=== PATIENT | female | born 1985 | race Caucasian/White ===

== ENCOUNTER 2017-08-05 18:17 | Emergency (ER) | payer OTHER ==
[2017-08-05 18:57] VITALS: BP 125/66; PULSE 72; TEMP 98.2; BMI 32.5
--- NOTE | 2017-08-05 19:37 | PDOC ---
History of Present Illness - General History Source: Patient Exam Limitations: No Limitations <Kaye Barrera - Last Filed: 08/05/17 19:46> <Bridgette Lopez - Last Filed: 08/06/17 00:39> - General Chief Complaint: Chest Pain Stated Complaint: CHEST PAIN Time Seen by Provider: 08/05/17 18:23 - History of Present Illness Initial Comments: 08/05/17 19:46 The patient is a 32 year old male who is 12 days post with subsequent DVT and PE, currently on Xarelto, who presents to the ED complaining of chest pain today. The patient states she was at home in the kitchen when she began to develop subxiphoid pain, radiating up the sternum, with associated SOB. She states she has experienced similar episodes in the past that were attributed to anxiety and GERD. Today, she states she reportedly became worried due to being on anticoagulents and activated EMS. Symptoms are improved on arrival. No fever or chills. No nausea, vomiting, or diarrhea. No headache or blurred vision. Patient goes to [address] [place] [address]. (Kaye Barrera) Past History <Kaye Barrera - Last Filed: 08/05/17 19:46> - Past Medical History Asthma: No Cancer: No Cardiac Disorders: No COPD: No Diabetes: No HTN: No Seizures: No Thyroid Disease: No - Surgical History Cardiac Surgery: No Gastric Stapling: No - Immunization History Immunization Up to Date: No - Suicide/Smoking/Psychosocial Hx Smoking History: Current every day smoker Have you smoked in the past 12 months: No Number of Cigarettes Smoked Daily: 10 If you are a former smoker, when did you quit?: 1-3 months Information on smoking cessation initiated: No Hx Alcohol Use: No Drug/Substance Use Hx: No Hx Substance Use Treatment: No <Bridgette Lopez - Last Filed: 08/06/17 00:39> - Past Medical History Allergies/Adverse Reactions: Allergies Allergy/AdvReac Type Severity Reaction Status Date / Time No Known Allergies Allergy Verified 07/24/17 07:58 Home Medications: Ambulatory Orders Rivaroxaban [Xarelto -] 15 mg PO BID 08/05/17 Review of Systems - Review of Systems Able to Perform ROS?: Yes <Kaye Barrera - Last Filed: 08/05/17 19:46> <Bridgette Lopez - Last Filed: 08/06/17 00:39> - Review of Systems Comments:: 08/05/17 19:53 GENERAL/CONSTITUTIONAL: No fever or chills. No weakness. HEAD, EYES, EARS, NOSE AND THROAT: No change in vision. No ear pain or discharge. No sore throat. CARDIOVASCULAR: +Chest pain, SOB improved. RESPIRATORY: No cough, wheezing, or hemoptysis. GASTROINTESTINAL: No nausea, vomiting, diarrhea or constipation. GENITOURINARY: No dysuria, frequency, or change in urination. MUSCULOSKELETAL: No joint or muscle swelling or pain. No neck or back pain. SKIN: No rash NEUROLOGIC: No headache, vertigo, loss of consciousness, or change in strength/ sensation. ENDOCRINE: No increased thirst. No abnormal weight change. HEMATOLOGIC/LYMPHATIC: No anemia, easy bleeding, or history of blood clots. ALLERGIC/IMMUNOLOGIC: No hives or skin allergy. (Kaye Barrera) *Physical Exam <Kaye Barrera - Last Filed: 08/05/17 19:46> <Bridgette Lopez - Last Filed: 08/06/17 00:39> - Vital Signs Last Vital Signs Temp Pulse Resp BP Pulse Ox 98.2 F 72 16 125/66 100 08/05/17 18:54 08/05/17 18:54 08/05/17 18:54 08/05/17 18:54 08/05/17 18:54 - Physical Exam Comments: 08/05/17 19:56 GENERAL: Awake, alert, and fully oriented, in no acute distress HEAD: No signs of trauma EYES: PERRLA, EOMI, sclera anicteric, conjunctiva clear ENT: Auricles normal inspection, nares patent. Moist mucosa NECK: Normal ROM, supple, no JVD, or masses LUNGS: Breath sounds equal, clear to auscultation bilaterally. No wheezes, and no crackles HEART: Regular rate and rhythm, normal S1 and S2, no murmurs, rubs or gallops ABDOMEN: Soft, nontender, normoactive bowel sounds. No guarding, no rebound. No masses EXTREMITIES: Normal range of motion, no edema. No clubbing or cyanosis. No cords, erythema, or tenderness NEUROLOGICAL: Alert and oriented x 3. Moves all extremities. Face is symmetric. SKIN: Warm, Dry, normal turgor, no rashes or lesions noted. (Kaye Barrera) ED Treatment Course - LABORATORY CBC & Chemistry Diagram: 08/05/17 20:52 08/05/17 20:52 <Bridgette Lopez - Last Filed: 08/06/17 00:39> - ADDITIONAL ORDERS Additional order review: Laboratory Results 08/05/17 08/05/17 08/05/17 20:59 20:52 20:52 PT with INR 12.30 H INR 1.09 Sodium 142 Potassium 4.4 Chloride 106 Carbon Dioxide 25 Anion Gap 11 BUN 16 Creatinine 0.7 Creat Clearance w eGFR > 60 Random Glucose 109 H Calcium 8.6 Magnesium 2.4 Total Bilirubin 0.4 AST 156 H ALT 92 H Alkaline Phosphatase 149 H Creatine Kinase 105 Troponin I < 0.02 Total Protein 6.7 Albumin 3.1 L Urine Color Straw Urine Appearance Clear Urine pH 7.0 Ur Specific [place] 1.005 Urine Protein Negative Urine Glucose (UA) Negative Urine Ketones Negative Urine Blood Negative Urine Nitrite Negative Urine Bilirubin Negative Urine Urobilinogen Negative Ur Leukocyte Esterase Trace Urine WBC (Auto) 5 Urine RBC (Auto) <1 Ur Epithelial Cells Rare Urine Bacteria Rare Urine HCG, Qual Positive 08/05/17 20:52 RBC 3.96 D MCV 95.7 MCHC 34.1 RDW 13.0 MPV 8.7 Neutrophils % 78.8 Lymphocytes % 14.9 D Monocytes % 5.5 Eosinophils % 0.5 Basophils % 0.3 - RADIOLOGY Radiology Studies Ordered: Category Date Time Status CHEST PA & LAT [RAD] Stat Radiology 08/05/17 22:23 Taken - Medications Given in the ED: ED Medications Discontinued Medications Generic Name Dose Route Start Last Admin Trade Name Freq PRN Reason Stop Dose Admin Aspirin 162 mg 08/05/17 19:46 08/05/17 20:47 Asa - PO 08/05/17 19:47 162 mg ONCE ONE Administration *DC/Admit/Observation/Transfer <Kaye Barrera - Last Filed: 08/05/17 19:46> <Bridgette Lopez - Last Filed: 08/06/17 00:39> Diagnosis at time of Disposition: Atypical chest pain - Discharge Dispostion Disposition: HOME Condition at time of disposition: Stable - Patient Instructions Printed Discharge Instructions: DI for Chest Pain Additional Instructions: IT IS VERY IMPORTANT TO TAKE YOUR MEDICINE FOR YOUR BLOOD CLOT You should followup with your cryptologic linguist and your primary doctor For your information there is a clinic at [address] [place] [address] [phone] If you develop any shortness of breath ,call 911 - Attestations Scribe Attestion: 08/05/17 19:57 Documentation prepared by Kaye Barrera, acting as medical record clerk for Bridgette Lopez MD. (Kaye Barrera)
[2017-08-05] MEDS ORDERED: ASPIRIN 81 MG CHEWABLE TABLETS PO ONE (19:46)
[2017-08-05] MEDS ORDERED: ASPIRIN 81 MG CHEWABLE TABLETS ONE ×2 (20:42→20:43)
[2017-08-05 20:57] LABS: BASO % 0.3 % (0-2.0); EOS % 0.5 % (0-4.5); HEMATOCRIT 37.9 % (32.4-45.2); HEMOGLOBIN 12.9 GM/dL (10.7-15.3); LYMPH % 14.9 % (8-40); MCH 32.6 pg (25.7-33.7); MCHC 34.1 g/dl (32.0-36.0); MEAN CELL VOLUME 95.7 fl (80-96); MEAN PLT VOLUME 8.7 fl (7.5-11.1); MONO % 5.5 % (3.8-10.2); NEUT % 78.8 % (42.8-82.8); PLATELET COUNT 247 K/MM3 (134-434); RBC 3.96 M/mm3 (3.60-5.2); WHITE BLOOD COUNT 6.8 K/mm3 (4.0-10.0)
[2017-08-05 21:22] LABS: INR 1.09 (0.82-1.09); PROTHROMBIN TIME (PATIENT) 12.3 SEC (9.98-11.88)
[2017-08-05 21:27] LABS: URINE APPEARANCE CLEAR; URINE BILIRUBIN NEGATIVE (NEGATIVE); URINE BLOOD NEGATIVE (NEGATIVE); URINE COLOR STRAW; URINE GLUCOSE (UA) NEGATIVE (NEGATIVE); URINE KETONE NEGATIVE (NEGATIVE); URINE LEUK ESTERASE TRACE (NEGATIVE); URINE NITRITE NEGATIVE (NEGATIVE); URINE PROTEIN NEGATIVE (NEGATIVE); URINE UROBILINOGEN NEGATIVE mg/dL (0.2-1.0)
[2017-08-05 21:33] LABS: HCG,QUALITATIVE URINE POSITIVE
[2017-08-05 21:37] LABS: EPI CELLS RARE /HPF (FEW); URINE BACTERIA RARE /hpf (NONE SEEN)
[2017-08-05 21:39] LABS: ALBUMIN 3.1 g/dl (3.4-5.0); ANION GAP 11 (8-16); BILIRUBIN,TOTAL 0.4 mg/dL (0.2-1.0); BLOOD UREA NITROGEN 16 mg/dL (7-18); CALCIUM 8.6 mg/dL (8.5-10.1); CHLORIDE 106 mmol/L (98-107); CO2 25 mmol/L (21-32); CREATININE 0.7 mg/dL (0.55-1.02); GLUCOSE,RANDOM 109 mg/dL (74-106); MAGNESIUM 2.4 mg/dL (1.8-2.4); POTASSIUM 4.4 mmol/L (3.5-5.1); SGOT/AST 156 U/L (15-37); SGPT/ALT 92 U/L (12-78); SODIUM 142 mmol/L (136-145); TOT PROT 6.7 g/dl (6.4-8.2)
[2017-08-05 21:42] LABS: ALK PHOS 149 U/L (45-117)
--- NOTE | 2017-08-06 09:56 | EKG ---
Test Reason : Blood Pressure : / mmHG Vent. Rate : 071 BPM Atrial Rate : 071 BPM P-R Int : 124 ms QRS Dur : 074 ms QT Int : 392 ms P-R-T Axes : 049 027 043 degrees QTc Int : 425 ms NORMAL SINUS RHYTHM NORMAL ECG NO PREVIOUS ECGS AVAILABLE Confirmed by FLORENTIN FROST MD ([id number]) on 08/06/2017 9:56:22 AM Referred By: Confirmed By:FLORENTIN FROST MD
== END 2017-08-06 00:42 | disposition home or self-care (01) ==
LOC: JER 18:17
DX: O90.89 Other complications of the puerperium, not elsewhere classified (principal); R07.89 Other chest pain; O87.1 Deep phlebothrombosis in the puerperium; I82.409 Acute embolism and thrombosis of unspecified deep veins of unspecified lower extremity; Z79.01 Long term (current) use of anticoagulants; O88.83 Other embolism in the puerperium
CPT/HCPCS: 36415; 71046-TC-FY; 80053; 81003; 81015; 82550; 83735; 84484; 84703; 85025; 85610; 93005; 93010; 99285-25

== ENCOUNTER 2018-06-06 00:22 | Emergency (ER) | payer OTHER ==
--- NOTE | 2018-06-06 00:32 | PDOC ---
Attending Attestation - HPI HPI: 06/06/18 01:12 The patient is a 33 year old female, with a significant past medical history of bilateral lower extremity DVT and PE ( 07/2017), who presents to the emergency department with, 1 week of intermittent bilateral upper extremity, neck, and chest pain. She denies any worsening or alleviating factors. She denies recent fevers, chills, headache or dizziness. She denies recent nausea, vomit, diarrhea or constipation. She denies recent dysuria, frequency, urgency or hematuria. Allergies: NKDA <Grayson Trujillo - Last Filed: 06/06/18 01:12> - Resident Resident Name: Paolo Ham - ED Attending Attestation I have performed the following: I have examined & evaluated the patient, The case was reviewed & discussed with the resident, I agree w/resident's findings & plan - Physicial Exam PE: 06/06/18 06:25 Agree with resident exam. Pt has no leg or upper ext swelling and no abd pain and normal heart and lungs and EKG - Medical Decision Making 06/06/18 06:26 Home with no change in meds. Pt will be asked to follow with her PMD. <Lulu Ureña - Last Filed: 06/06/18 06:26> Attestations - Attestations 06/06/18 01:15 Documentation prepared by Grayson Trujillo, acting as medical and health services manager for Lulu Ureña MD. <Grayson Trujillo - Last Filed: 06/06/18 01:12>
--- NOTE | 2018-06-06 00:41 | PDOC ---
History of Present Illness - General Stated Complaint: CHEST PAIN Time Seen by Provider: 06/06/18 00:31 - History of Present Illness Initial Comments: The patient is a 33F w/ a history of DVT/PE s/p in 07/2017 w/ 2-3 months of Xarelto therapy who presents for evaluation of 2 weeks of intermittent , migrating, BUE, neck, and chest pains. She describes the pain as tingling. She does not notice anything that makes it better or worse. Denies fevers/chills, ADEN, vision changes, SOB, abdominal pain, N/V/C/D 06/06/18 01:12 Past History - Past Medical History Allergies/Adverse Reactions: Allergies Allergy/AdvReac Type Severity Reaction Status Date / Time No Known Allergies Allergy Verified 06/06/18 00:40 Home Medications: Ambulatory Orders NK [No Known Home Medication] 06/06/18 Asthma: No Cancer: No Cardiac Disorders: No COPD: No Diabetes: No HTN: No Seizures: No Thyroid Disease: No - Surgical History Cardiac Surgery: No Gastric Stapling: No - Immunization History Immunization Up to Date: No - Suicide/Smoking/Psychosocial Hx Smoking History: Current every day smoker Have you smoked in the past 12 months: No Number of Cigarettes Smoked Daily: 10 If you are a former smoker, when did you quit?: 1-3 months Hx Alcohol Use: No Drug/Substance Use Hx: No Hx Substance Use Treatment: No Review of Systems - Review of Systems Able to Perform ROS?: Yes Comments:: GENERAL/CONSTITUTIONAL: No fever or chills. No weakness HEAD, EYES, EARS, NOSE AND THROAT: No change in vision. No ear pain or discharge. No sore throat CARDIOVASCULAR: No chest pain or shortness of breath RESPIRATORY: Denies cough, hemoptysis GASTROINTESTINAL: No nausea, vomiting, diarrhea or constipation GENITOURINARY: No dysuria, frequency, or change in urination MUSCULOSKELETAL: No joint or muscle swelling or pain. No neck or back pain SKIN: No rash NEUROLOGIC: No headache, vertigo, loss of consciousness, or change in strength ENDOCRINE: No increased thirst. No abnormal weight change HEMATOLOGIC/LYMPHATIC: +hx of DVT/PE s/p ALLERGIC/IMMUNOLOGIC: No hives or skin allergy 06/06/18 00:40 Is the patient limited Citizen Of [place] proficient: No *Physical Exam - Vital Signs Vital Signs Temp Pulse Resp BP Pulse Ox 98.4 F 63 18 110/55 L 99 06/06/18 00:35 06/06/18 00:35 06/06/18 00:35 06/06/18 00:35 06/06/18 00:35 06/06/18 00:48 - Physical Exam Comments: GENERAL: Awake, alert, and fully oriented, in no acute distress HEAD: No signs of trauma, normocephalic, atraumatic EYES: PERRLA, EOMI, sclera anicteric, conjunctiva clear ENT: Hearing grossly normal, nares patent, oropharynx clear without exudates. Moist mucosa LUNGS: No distress, speaks full sentences, clear to auscultation bilaterally HEART: Regular rate and rhythm, normal S1 and S2, no murmurs appreciated, peripheral pulses normal and equal bilaterally ABDOMEN: Soft, nontender, normoactive bowel sounds. No guarding, no rebound EXTREMITIES : Normal inspection, Normal range of motion, no edema. No clubbing or cyanosis NEUROLOGICAL: Cranial nerves II through XII grossly intact. Normal speech, normal gait, no focal sensorimotor deficits. Sensation intact and equal in BUE/ BLE SKIN: Warm, Dry, normal turgor, no rashes or lesions noted 06/06/18 00:40 Medical Decision Making - Medical Decision Making The patient is a 33F w/ a history of DVT/PE s/p in 07/2017 who presents for evaluation of 1wk of intermittent, migrating BUE, neck, and chest pain ED Course D-dimer ECG ECG w/ sinus miracle 06/06/18 01:27 D-dimer neg -Recurrent DVT/PE not likely Plan for D/C w/ PCP f/u Discharge instructions and return precautions given Patient in agreement and verbalized understanding Dispo: Home 06/06/18 05:08 *DC/Admit/Observation/Transfer Diagnosis at time of Disposition: Chest pain Qualifiers: Chest pain type: unspecified Qualified Code(s): R07.9 - Chest pain, unspecified - Discharge Dispostion Disposition: HOME Condition at time of disposition: Stable Decision to Admit order: No - Referrals Referrals: [facility] [place] [facility] [Provider Group] - Patient Instructions Printed Discharge Instructions: DI for Atypical Chest Pain Additional Instructions: You were seen in the Emergency Department today for evaluation of upper extremity and chest pain. You were found to not have evidence of a blood clot. Please review the handout provided at discharge. Follow up with your primary care provider. Return to the Emergency Department if you develop change in pain, worsening symptoms, trouble breathing, or any new/concerning symptoms. - Post Discharge Activity Forms/Work/School Notes: Back to Work
[2018-06-06 00:42] VITALS: BP 110/55; PULSE 63; TEMP 98.4; BMI 31.8
--- NOTE | 2018-06-07 19:11 | EKG ---
Test Reason : Blood Pressure : / mmHG Vent. Rate : 053 BPM Atrial Rate : 053 BPM P-R Int : 158 ms QRS Dur : 084 ms QT Int : 430 ms P-R-T Axes : 071 076 051 degrees QTc Int : 403 ms SINUS BRADYCARDIA OTHERWISE NORMAL ECG WHEN COMPARED WITH ECG OF 05-AUG-2017 18:49, NO SIGNIFICANT CHANGE WAS FOUND Confirmed by KIRT LINO MD ([id number]) on 06/07/2018 7:11:19 PM Referred By: Confirmed By:KIRT LINO MD
== END 2018-06-06 01:57 | disposition home or self-care (01) ==
LOC: JER 00:22
DX: R07.9 Chest pain, unspecified (principal); Z86.718 Personal history of other venous thrombosis and embolism; Z86.711 Personal history of pulmonary embolism
CPT/HCPCS: 85379; 93005; 93010; 99284-25